=== PATIENT | male | born 1945 ===

== ENCOUNTER 2024-06-29 08:55 | Outpatient (RCR) | payer MEDICARE, SELFPAY ==
--- NOTE | 2024-06-29 09:58 | OPREHPOC ---
Outpatient Therapy Plan of Care This is a Multidisciplinary Plan of Care that may contain components documented by all disciplines (PT, OT, and ST.) PT Problem 1 PT Problem #1 Knowledge Deficit PT Goal 1 Goal / Goal Update The patient will be independent in a home exercise program. Target Visit 4 PT Problem 2 PT Problem #2 Pain PT Goal 1 Goal / Goal Update The patient will report no greater than 3/10 left knee pain with standing for 2+ hours. Target Visit 8 PT Problem 3 PT Problem #3 Impaired Functional Mobil PT Goal 1 Goal / Goal Update 1. The patient will demonstrate 20% or less self perceived disability per the LEFS. 2. The patient will demonstrate the ability to perform sit to stand without UE support for 10 repetitions. Target Visit 8 PT Problem 4 PT Problem #4 Impaired Range of Motion PT Goal 1 Goal / Goal Update The patient will demonstrate left knee AROM of 0- 125 degrees to improve gait. Target Visit 8
--- NOTE | 2024-06-29 09:58 | PTOPEVAL1 ---
Assessment and note entered by Yana Jacinto, PT Evaluation Information Assessment Status Evaluation ICD-10 Condition Codes (PT) Pain in left knee M25.562 Other ICD-10 Condition Codes ( M17.12, G89.29 PT) Onset 06/20/24 Subjective Information Waylon Lin reports he has osteoarthritis in his left knee and he is planning to have a knee replacement in the next 4-5 months. He has bone on bone in both knees but his left one hurts more. He notes difficulty standing for a long period, daily activities that require more effort, and straightening the knee all the way. 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 He notes difficulty with gardening, yard work, and walking through the timber on his property as well. He is using a brace occasionally , ice, and topical diclofenac for pain. Reported Pain Level Pain Score 4: Self Report Assessment PT Clinical Summary Waylon Lin presents with left knee pain and has been diagnosed with osteoarthritis. He is in the process of having a total knee replacement surgery scheduled. He has difficulty with prolonged standing, prolonged walking, walking on uneven terrain, gardening, and straightening the left knee. He objectively demonstrates decreased L > R knee extension AROM, decreased left knee flexion AROM, decreased left > right knee and hip strength, altered gait, and decreased bilateral hamstring and quadriceps flexibility. He will benefit from skilled PT to address these limitations. Plan of Care Interventions Electrical Stimulation,Gait Training,Hot Pack/Cold Pack,Intermittent Compression,Manual Therapy, Neuro Re-education,Patient/Caregiver Educati, Therapeutic Activities,Therapeutic Exercise PT Services Indicated Yes Treatment Frequency and 2 times a week for 4 visits then 1 time a week for Duration 4 visits to total 8 visits These treatments will address the objective and functional deficits as defined above. The patient will be advanced safely and appropriately in order for the patient to progress towards his/her prior level of function. Additional exercises will be introduced and as well as a comprehensive home exercise program upon discharge, if needed, ?to ensure carryover of functional gains achieved in the clinic. This treatment plan has been reviewed and agreement upon by the patient.
--- NOTE | 2024-08-01 09:38 | PTOPDC ---
Assessment and note entered by [facility] Evaluation Information Assessment Status Discharge ICD-10 Condition Codes (PT) Pain in left knee M25.562 Other ICD-10 Condition Codes ( M17.12, G89.29 PT) Onset 06/20/24 Subjective Information Pt. reports that the left knee is slightly more painful since beginning therapy. He states that despite the increased pain, he notices improved mobility. He reports that he will continue with his HEP and is ready for discharge at this time. Reported Pain Level Pain Score 4: Self Report Assessment PT Clinical Summary Pt. has demonstrated improvements in regards to strength and ROM. His score on the LEFS has improve significantly. He is informed on importance on continuing exercise and has written instruction regarding all exercise. He is appropriate for discharge at this time. Plan of Care PT Services Indicated No
== END 2024-08-01 09:46 | disposition home or self-care (01) ==
LOC: CHSPT 08:55
DX: M17.12 Unilateral primary osteoarthritis, left knee (principal); M25.562 Pain in left knee; G89.29 Other chronic pain
CPT/HCPCS: 97014; 97110; 97161; G0283

== ENCOUNTER 2024-12-12 14:35 | Outpatient (RCR) | payer MEDICARE, SELFPAY ==
--- NOTE | 2024-12-12 15:34 | OPREHPOC ---
Outpatient Therapy Plan of Care This is a Multidisciplinary Plan of Care that may contain components documented by all disciplines (PT, OT, and ST.) PT Problem 1 PT Problem #1 Knowledge Deficit PT Goal 1 Goal / Goal Update Independent and compliant with HEP. Target Visit 4 PT Problem 2 PT Problem #2 Impaired Range of Motion PT Goal 1 Goal / Goal Update Pt to reach full active L knee extension. Pt to reach 125 degrees L knee flexion. Target Visit 10 PT Problem 3 PT Problem #3 Impaired Strength PT Goal 1 Goal / Goal Update Pt to improve gross LE strength to 5/5 bilaterally . Target Visit 10 PT Problem 4 PT Problem #4 Impaired Functional Mobility PT Goal 1 Goal / Goal Update Pt to be able to ambulate over grass without LOB to improve safety when walking around the yard. Pt to no 0% disability on LEFS. Target Visit 10
--- NOTE | 2024-12-12 15:34 | PTOPEVAL1 ---
Assessment and note entered by Marcy Wilson, PT Evaluation Information Assessment Status Evaluation Diagnosis L TKA ICD-10 Condition Codes (PT) Aftercare following joint replacement surgery Z47. 1 Other ICD-10 Condition Codes ( Z96.652 PT) Onset 11/01/24 Subjective Information Pr reports he had his L knee replaced on October 2407/18. Since surgery he has been performing exercises at home which were given to him from his doctor. He has been performing heel prop, heel slides, SLR and heel raises as part of his post-op exercise program. He denies pain at this time and reports his pain does not get very high at all and he rarely takes pain meds. He last saw his doctor on November 28 and does not see them again for 6 months. He states his main goal is to be able to walk long distances out in his yard. Reported Pain Level Pain Score 0: Self Report Assessment PT Clinical Summary Mr. Lin is a 79 yo male who enters the clinic almost 6 weeks post-op L TKA. He demonstrates mild deficits in L knee AROM and bilateral lower extremity strength. He will benefit from skilled PT intervention to improve on these deficits to be able to perform daily functional tasks such as walking on uneven ground without difficulty. Plan of Care Interventions Gait Training,Hot Pack/Cold Pack,Intermittent Compression Pump,Manual Therapy,Neuro Re-education ,Patient/Caregiver Education,Therapeutic Activities,Therapeutic Exercise,Self-Care/Home Management PT Services Indicated Yes Treatment Frequency and 2x/week for 10 visits Duration These treatments will address the objective and functional deficits as defined above. The patient will be advanced safely and appropriately in order for the patient to progress towards his/her prior level of function. Additional exercises will be introduced and as well as a comprehensive home exercise program upon discharge, if needed, ?to ensure carryover of functional gains achieved in the clinic. This treatment plan has been reviewed and agreement upon by the patient.
--- NOTE | 2024-12-15 13:33 | PCPTNOTE ---
Cancelled session. Reports he cannot make it today and will call back to reschedule.
--- NOTE | 2025-01-20 07:48 | OPREHPOC ---
Outpatient Therapy Plan of Care This is a Multidisciplinary Plan of Care that may contain components documented by all disciplines (PT, OT, and ST.) PT Problem 1 PT Problem #1 Knowledge Deficit PT Goal 1 Goal / Goal Update Independent and compliant with HEP. Target Visit 4 Progress Met PT Problem 2 PT Problem #2 Impaired Range of Motion PT Goal 1 Goal / Goal Update Pt to reach full active L knee extension. Pt to reach 125 degrees L knee flexion. Target Visit 10 Progress Met PT Problem 3 PT Problem #3 Impaired Strength PT Goal 1 Goal / Goal Update Pt to improve gross LE strength to 5/5 bilaterally . Target Visit 10 Progress Met PT Problem 4 PT Problem #4 Impaired Functional Mobility PT Goal 1 Goal / Goal Update Pt to be able to ambulate over grass without LOB to improve safety when walking around the yard. Pt to no 0% disability on LEFS. not met Target Visit 10 Progress Partially Met
--- NOTE | 2025-01-20 07:49 | PTOPDC ---
Assessment and note entered by JT File, PT Evaluation Information Assessment Status Discharge Diagnosis L TKA ICD-10 Condition Codes (PT) Aftercare following joint replacement surgery Z47. 1 Other ICD-10 Condition Codes ( Z96.652 PT) Onset 11/01/24 Subjective Information Pr reports he had his L knee replaced on October 2407/18. Since surgery he has been performing exercises at home which were given to him from his doctor. He has been performing heel prop, heel slides, SLR and heel raises as part of his post-op exercise program. He denies pain at this time and reports his pain does not get very high at all and he rarely takes pain meds. He last saw his doctor on November 28 and does not see them again for 6 months. He states his main goal is to be able to walk long distances out in his yard. Reported Pain Level Pain Score 2: Self Report Assessment PT Clinical Summary mr. ga presents to skilled PT for his 10th skilled PT visit today. he has met all goals for skilled PT except for LEFS rating. he reports he is ready to end therapy on the L knee as he prepares to have the R knee done later this year. patient was given an updated HEP to continue to work on the L knee and also prepare the R knee for replacement. he will be DC'd from skilled PT today. Plan of Care PT Services Indicated Yes
== END 2025-01-20 20:00 | disposition home or self-care (01) ==
LOC: CHSPT 14:35
DX: Z96.652 Presence of left artificial knee joint (principal); Z47.1 Aftercare following joint replacement surgery
CPT/HCPCS: 97110; 97112; 97161; 97530